=== PATIENT | male | born 1970 | race Caucasian/White ===

== ENCOUNTER 2019-07-29 16:11 | Emergency (ER) | payer BC ==
[~2019-07-29] VITALS: Ht 165.1 cm; Wt 68.0 kg
[2019-07-29 16:23] VITALS: BP 130/77
--- NOTE | 2019-07-29 16:56 | NUR ---
49 Y/O M PRESENTS TO ER C/O RIGHT WRIST PAIN SINCE LAST NIGHT. PER PT HE WAS EXERCISING WHEN PAIN STARTED. PAIN LEVEL 3/10 WITHOUT ANY MOVEMENT. SWELLING NOTED TO WRIST. PT TOOK MOTRIN YESTERDAY WITH PAIN RELIEF. HOB ELEVATED, BED IN LOWEST POSITION, BED RAIL UP X1. WAITING FOR ERMD TO EVALUATE PT. ALLERGIES: NKA MED HX: NONE
--- NOTE | 2019-07-29 17:30 | NUR ---
PT SITTING IN CHAIR ON CELL PHONE. WILL CONTINUE TO MONITOR.
--- NOTE | 2019-07-29 18:42 | NUR ---
PLACED SHORT ARM COLLES ON RIGHT WRIST OF PT
--- NOTE | 2019-07-29 18:54 | NUR ---
Patient discharged with v/s stable. Written and verbal after care instructions given and explained.Pt instructed to follow up at [facility] and for orthopaedic surgery. Patient alert, oriented and verbalized understanding of instructions. Ambulatory with steady gait. All questions addressed prior to discharge. ID band removed. Patient advised to follow up with PMD. Rx of IBUPROFEN 600mg was given. Patient educated on indication of medication including possible reaction and side effects. Opportunity to ask questions provided and answered.
[2019-07-29 18:56] VITALS: BP 130/77
== END 2019-07-29 18:54 | disposition home or self-care (01) ==
LOC: MED 16:11
DX: S52.591A Other fractures of lower end of right radius, initial encounter for closed fracture (principal); W01.0XXA Fall on same level from slipping, tripping and stumbling without subsequent striking against object, initial encounter; Y93.56 Activity, jumping rope; Y92.89 Other specified places as the place of occurrence of the external cause; Y99.8 Other external cause status
CPT/HCPCS: 29125; 73110; 99283; Q0092